=== PATIENT | male | born 1955 | race African-American/Black ===

== ENCOUNTER 2018-02-25 09:21 | Emergency (ER) | payer MEDICAID ==
[2018-02-25] MEDS ORDERED: Cyclobenzaprine 10 MG TAB ONE (09:36)
[2018-02-25] MEDS ORDERED: Ketorolac Tromethamine 60 MG/2 ML VIAL ONE (09:36)
--- NOTE | 2018-02-25 10:31 | RAD ---
THREE VIEWS LUMBAR SPINE: History Low back pain. COMPARISON: None. FINDINGS: Five lumbar-type vertebral bodies. Vertebral body height is maintained. There is preservation of di sk space height from L1-L2 to L4-L5. There is moderate degenerative disk disease at L5-S1 with vacuu m disk phenomena and osteophyte formation. Straightening of normal lower lordosis is presumed to be positional. IMPRESSION: Degenerative changes at L5-S1. Nonemergent lumbar spine MRI. POS: [facility]
== END 2018-02-25 11:05 | disposition home or self-care (01) ==
LOC: ERS 09:21
DX: M51.37 Other intervertebral disc degeneration, lumbosacral region (principal); G89.29 Other chronic pain; E78.5 Hyperlipidemia, unspecified
CPT/HCPCS: 72100; 96372; J1885

== ENCOUNTER 2023-08-13 18:16 | Observation (INO) | payer OTHER ==
[~2023-08-13 18:16] MED LIST: Iopamidol-370 76% 500 ML MDV (1 ML CHARGE) ONE
[2023-08-13] MEDS ORDERED: Ondansetron PF 4 MG/2 ML Vial ONE (19:21)
[2023-08-13] MEDS ORDERED: Ketorolac Tromethamine 30 MG/ML VIAL ONE (19:21)
[2023-08-13] MEDS ORDERED: Promethazine HCl 12.5 MG in Sodium Chloride 0.9% 50 ML IVPB SCH (19:30)
[2023-08-13 20:42] LABS: #Eosinphils 0.1 thou/uL (0.0-0.7); #Monocytes 0.4 thou/uL (0.11-0.59); #Neutrophils 2.8 thou/uL (1.40-6.50); %Basophils 0.5 % (0.0-1.0); %Eosinophils 1.7 % (0.0-10.0); %Lymphocytes 41.5 % (21.0-51.0); %Monocytes 7.5 % (0.0-10.0); %Neutrophils 48.5 % (42.0-75.0); Hematocrit 45.3 % (42.0-52.0); Hemoglobin 15.4 g/dL (14.0-18.0); Mean Corpuscular Hemoglobin 30.7 pg (27.0-31.0); Mean Corpuscular Volume 90.2 fl (78.0-98.0); Mean Platelet Volume 8.8 fL (7.4-10.4); Platelet Count 412 10x3/uL (130-400); RBC Distribution Width 12.7 % (11.5-14.5); Red Blood Cell (RBC) Count 5.02 mill/uL (4.70-6.10); White Blood Cell (WBC) Count 5.7 10x3/uL (4.8-10.8)
[2023-08-13 20:48] LABS: Bacteria/HPF None Seen HPF (None Seen); Bilirubin Negative (Negative); Blood, Urine Negative (Negative); CAUTI Indications for Culture Pelvic or flank pain; Clarity Clear (Clear); Glucose, Urine (Dipstick) Normal (Negative); Ketone, Urine Trace mg/dL (Negative); Leukocyte Negative Leu/uL (Negative); Nitrite Negative (Negative); Protein, Urine (Dipstick) Negative (Neg-Trace); RBC/HPF None Seen HPF (0-3); Specific Gravity, Urine 1.009 (1.002-1.036); Squamous Epithelial 0-3 HPF (0-3); Urobilinogen Normal mg/dL (Less than 2); WBC/HPF 0-3 HPF (0-3)
[2023-08-13 20:50] LABS: Urine Culture Reflex No No
[2023-08-13 21:04] LABS: ALT (SGPT) 14 U/L (8-55); AST (SGOT) 21 U/L (5-34); Albumin 4.8 g/dL (3.4-4.8); Alkaline Phosphatase 113 U/L (40-110); Anion Gap 15 mmol/L (10-20); BUN (Urea Nitrogen) 6 mg/dL (8.4-25.7); Calc. Creatinine Clearance 0 mL/min (70-130); Calcium 9.4 mg/dL (7.8-10.44); Carbon Dioxide 21 mmol/L (23-31); Chloride 105 mmol/L (98-107); Estimated GFR 82; Globulin 3.1 g/dL (2.4-3.5); Glucose 100 mg/dL (80-115); Lipase 309 U/L (8-78); Potassium 3.6 mmol/L (3.5-5.1); Protein, Total 7.9 g/dL (5.8-8.1); Sodium 137 mmol/L (136-145)
[2023-08-13] MEDS ORDERED: Morphine 4 MG/ML VIAL ONE (23:22)
[2023-08-13] MEDS ORDERED: Morphine 4 MG/ML VIAL SLOW IVP PRN (23:28)
[2023-08-13] MEDS ORDERED: Acetaminophen 325 MG TAB PO PRN (23:30)
[2023-08-13] MEDS ORDERED: Ondansetron ODT 4 MG TAB SL PRN (23:30)
[2023-08-14] MEDS: Sodium Chloride 0.9% 1,000 ML IV SCH ×5 (01:11→22:30)
[2023-08-14 01:21] VITALS: BMI 25.7
[2023-08-14] MEDS: Ondansetron PF 4 MG/2 ML Vial IVP PRN ×2 (01:53→08:22)
[2023-08-14 03:55] LABS: #Eosinphils 0.1 thou/uL (0.0-0.7); #Monocytes 0.6 thou/uL (0.11-0.59); #Neutrophils 2.4 thou/uL (1.40-6.50); %Basophils 0.4 % (0.0-1.0); %Eosinophils 1.5 % (0.0-10.0); %Lymphocytes 43.9 % (21.0-51.0); %Monocytes 10.4 % (0.0-10.0); %Neutrophils 43.6 % (42.0-75.0); Hematocrit 36.9 % (42.0-52.0); Hemoglobin 12.6 g/dL (14.0-18.0); Mean Corpuscular HGB CONC 34.1 g/dL (32.0-36.0); Mean Corpuscular Hemoglobin 31.5 pg (27.0-31.0); Mean Corpuscular Volume 92.3 fl (78.0-98.0); Mean Platelet Volume 8.6 fL (7.4-10.4); Platelet Count 332 10x3/uL (130-400); RBC Distribution Width 12.7 % (11.5-14.5); White Blood Cell (WBC) Count 5.4 10x3/uL (4.8-10.8)
[2023-08-14 04:31] LABS: ALT (SGPT) 12 U/L (8-55); AST (SGOT) 16 U/L (5-34); Albumin 3.6 g/dL (3.4-4.8); Alkaline Phosphatase 78 U/L (40-110); Anion Gap 12 mmol/L (10-20); BUN (Urea Nitrogen) 5 mg/dL (8.4-25.7); Bilirubin, Total 0.8 mg/dL (0.2-1.2); Calc. Creatinine Clearance 91 mL/min (70-130); Carbon Dioxide 19 mmol/L (23-31); Chloride 111 mmol/L (98-107); Estimated GFR 95; Globulin 2.1 g/dL (2.4-3.5); Glucose 81 mg/dL (80-115); Potassium 3.4 mmol/L (3.5-5.1); Protein, Total 5.7 g/dL (5.8-8.1); Sodium 139 mmol/L (136-145)
[2023-08-14] MEDS ORDERED: Morphine 4 MG/ML VIAL SLOW IVP SCH (08:15)
[2023-08-14] MEDS: Morphine 2 MG/ML VIAL SLOW IVP PRN ×2 (18:30→22:27)
[2023-08-15 00:11] VITALS: TEMP 98.4
[2023-08-15] MEDS: Morphine 2 MG/ML VIAL SLOW IVP PRN (05:14)
[2023-08-15] MEDS: Sodium Chloride 0.9% 1,000 ML IV SCH (05:16)
[2023-08-15 06:19] LABS: #Basophils 0.1 thou/uL (0.0-0.2); #Eosinphils 0.2 thou/uL (0.0-0.7); #Monocytes 0.3 thou/uL (0.11-0.59); #Neutrophils 1.8 thou/uL (1.40-6.50); %Basophils 1.1 % (0.0-1.0); %Eosinophils 3.7 % (0.0-10.0); %Lymphocytes 48.7 % (21.0-51.0); %Monocytes 7.3 % (0.0-10.0); %Neutrophils 38.8 % (42.0-75.0); Hematocrit 33.5 % (42.0-52.0); Hemoglobin 11.4 g/dL (14.0-18.0); Mean Corpuscular Hemoglobin 31.6 pg (27.0-31.0); Mean Corpuscular Volume 92.8 fl (78.0-98.0); Mean Platelet Volume 8.9 fL (7.4-10.4); Platelet Count 322 10x3/uL (130-400); RBC Distribution Width 12.9 % (11.5-14.5); Red Blood Cell (RBC) Count 3.61 mill/uL (4.70-6.10); White Blood Cell (WBC) Count 4.6 10x3/uL (4.8-10.8)
[2023-08-15 06:46] LABS: ALT (SGPT) 10 U/L (8-55); AST (SGOT) 16 U/L (5-34); Albumin 3.2 g/dL (3.4-4.8); Alkaline Phosphatase 73 U/L (40-110); Anion Gap 12 mmol/L (10-20); BUN (Urea Nitrogen) 4 mg/dL (8.4-25.7); Bilirubin, Total 0.9 mg/dL (0.2-1.2); Calc. Creatinine Clearance 101 mL/min (70-130); Carbon Dioxide 20 mmol/L (23-31); Chloride 114 mmol/L (98-107); Estimated GFR 98; Globulin 2.1 g/dL (2.4-3.5); Glucose 82 mg/dL (80-115); Potassium 3.6 mmol/L (3.5-5.1); Protein, Total 5.3 g/dL (5.8-8.1); Sodium 142 mmol/L (136-145)
[2023-08-15 13:35] VITALS: BP 153/97
== END 2023-08-15 13:35 | disposition home or self-care (01) ==
LOC: ERS 18:16 → T4-A 23:22
PROVIDERS: ADMIT Internal Medicine; ATTEND Internal Medicine
DX: K52.9 Noninfective gastroenteritis and colitis, unspecified (principal); I77.1 Stricture of artery; E78.5 Hyperlipidemia, unspecified; Z79.899 Other long term (current) drug therapy; Z87.891 Personal history of nicotine dependence; Z91.02 Food additives allergy status
CPT/HCPCS: 74177; 80053 ×3; 81001; 83605; 83690; 85025 ×3; 96360; 96361; 96372 ×2; 96374; 96375; 96376 ×2; 99285; G0378 ×4; 36415; J1650; J1885; J2270; J2272; J2405; J2550; J7050; Q9967

== ENCOUNTER 2023-08-26 09:51 | Outpatient (CLI) | payer OTHER, MEDICAID ==
[2023-08-26 13:54] LABS: Anion Gap 15 mmol/L (10-20); BUN (Urea Nitrogen) 11 mg/dL (8.4-25.7); Calc. Creatinine Clearance 0 mL/min (70-130); Calcium 8.8 mg/dL (7.8-10.44); Carbon Dioxide 19 mmol/L (23-31); Chloride 107 mmol/L (98-107); Estimated GFR 80; Glucose 80 mg/dL (80-115); Potassium 4.6 mmol/L (3.5-5.1); Sodium 136 mmol/L (136-145)
== END 2023-08-26 09:52 | disposition home or self-care (01) ==
LOC: LABBT 09:51
PROVIDERS: ATTEND Student in an Organized Health Care Education/Training Program
DX: Z01.812 Encounter for preprocedural laboratory examination (principal); I70.8 Atherosclerosis of other arteries
CPT/HCPCS: 80048

== ENCOUNTER 2023-08-30 05:38 | Day surgery (SDC) | payer OTHER, MEDICAID ==
[2023-08-26 10:49] VITALS: BMI 24.5
[2023-08-30] MEDS ORDERED: Sodium Chloride 0.9% 100 ML ONE (06:16)
[2023-08-30] MEDS ORDERED: Lidocaine 1% MPF 2 ML VIAL ONE (06:16)
[2023-08-30] MEDS ORDERED: CEFAZOLIN 2 GM VIAL ONE (06:16)
[2023-08-30] MEDS ORDERED: fentaNYL 50 mcg/mL 1 mL Vial ONE (06:28)
[2023-08-30] MEDS ORDERED: Heparin 10,000 UNITS/ 10 ML VIAL ONE (06:28)
[2023-08-30] MEDS ORDERED: Lidocaine 1% (PF) 30 ML VIAL ONE (06:28)
[2023-08-30] MEDS ORDERED: Midazolam HCl 2 mg/2 ml Vial ONE (06:28)
[2023-08-30] MEDS ORDERED: HYDROcodone/Acetaminophen 5/325 mg Tablet ONE (08:58)
[2023-08-30] MEDS ORDERED: Iopamidol 370 76% 100 ML VIAL ONE (14:04)
== END 2023-08-30 13:00 | disposition home or self-care (01) ==
LOC: SDC 05:38
PROVIDERS: ATTEND Student in an Organized Health Care Education/Training Program
PROC: 04HD3DZ Insertion of Intraluminal Device into Left Common Iliac Artery, Percutaneous Approach (ICD-10-PCS; principal; 2023-08-30)
DX: I70.8 Atherosclerosis of other arteries (principal); I77.1 Stricture of artery; I73.9 Peripheral vascular disease, unspecified; Z91.018 Allergy to other foods; Z87.19 Personal history of other diseases of the digestive system; Z85.46 Personal history of malignant neoplasm of prostate; Z90.79 Acquired absence of other genital organ(s); Z87.891 Personal history of nicotine dependence; Z79.82 Long term (current) use of aspirin; Z79.899 Other long term (current) drug therapy
CPT/HCPCS: 37221; 75736; C1760; C1769; C1876; C1894 ×4; J3010; 36245; J1644; J2001; J2250; J3490; Q9967

== ENCOUNTER 2023-10-15 09:43 | Outpatient (CLI) | payer OTHER, MEDICAID ==
[2023-10-15] MEDS ORDERED: Iopamidol 370 76% 100 ML VIAL ONE (11:56)
== END 2023-10-15 09:44 | disposition home or self-care (01) ==
LOC: BICCT 09:43 → CT 09:44
PROVIDERS: ATTEND Student in an Organized Health Care Education/Training Program
DX: I73.9 Peripheral vascular disease, unspecified (principal); I77.89 Other specified disorders of arteries and arterioles
CPT/HCPCS: 75635; 82565; Q9967